=== PATIENT | female | born 1940 | race Caucasian/White ===

== ENCOUNTER 2018-01-15 22:28 | Emergency (ER) | payer MEDICARE, BC, MEDICAID ==
--- NOTE | 2018-01-16 00:53 | EDM.PDOC ---
ED HPI GENERAL MEDICAL PROBLEM - General Chief Complaint: ENT Problem Stated Complaint: SORE THROAT [id number] Time Seen by Provider: 01/16/18 00:05 Source of Information: Reports: Patient History Limitations: Reports: No Limitations - History of Present Illness INITIAL COMMENTS - FREE TEXT/NARRATIVE: ED with c/o sore throat , was in clinic on Thursday started on amoxicillin for sinus infection. Voice now hoarse, Concerned as on medication for arthritis that decreases immune system. - Related Data Allergies Allergy/AdvReac Type Severity Reaction Status Date / Time leflunomide [From Arava] Allergy Cannot Verified 01/15/18 23:05 Remember methotrexate Allergy Cannot Verified 01/15/18 23:05 Remember naproxen sodium [From Aleve] Allergy Nausea and Verified 01/15/18 23:05 Vomiting primidone Allergy Cannot Verified 01/15/18 23:05 Remember Home Meds: Home Meds Acetaminophen [Tylenol Extra Strength] 1 tab PO Q6H 05/15/14 [History] Ascorbic Acid 1 tab PO DAILY 05/15/14 [History] Calcium Carb/Vit D3/Minerals [Calcium 600+D Plus Minerals] 1 tab PO BID [History] Cyanocobalamin (Vitamin B-12) [Vitamin B-12] 1 tab PO DAILY 05/15/14 [History] Etanercept [Enbrel] 50 mg SUBCUT ASDIRECTED 05/15/14 [History] Ferrous Sulfate 1 tab PO DAILY 05/15/14 [History] Methotrexate Sodium [Methotrexate] 6 tab PO .WEEKLY 05/15/14 [History] Multivitamin [Multi Vitamin Daily] 1 tab PO DAILY 05/15/14 [History] Rosuvastatin [Crestor] 2.5 mg PO DAILY 05/15/14 [History] Sennosides/Docusate Sodium [Stool Soft-Stimulant Lax] 1 tab PO DAILY 05/15/14 [ History] clonazePAM [Clonazepam] 0.5 mg PO BID 05/15/14 [History] Folic Acid 1 mg PO DAILY 05/16/14 [History] Glucosamine/D3/Boswellia Melvina [Osteo Bi-Flex Caplet] 1 tab PO BID 05/16/14 [ History] Hydrochlorothiazide/Lisinopril [Lisinopril/HCTZ 20-12.5 MG] 1 tab PO DAILY 09/23 /14 [History] Levothyroxine Sodium 75 mcg PO ACBRK 05/16/14 [History] metFORMIN HCl [Metformin HCl] 500 mg PO BID 05/16/14 [History] Methylcellulose [Citrucel SF] 2 tsp PO DAILY 05/17/14 [History] Past Medical History Cardiovascular History: Reports: High Cholesterol, Hypertension Gastrointestinal History: Reports: Cholelithiasis, Chronic Constipation Musculoskeletal History: Reports: Osteoarthritis, RA Psychiatric History: Reports: Anxiety Endocrine/Metabolic History: Reports: Diabetes, Type II, Hypothyroidism Hematologic History: Reports: Anemia, B12 Deficiency - Infectious Disease History Infectious Disease History: Reports: C-Difficile - Past Surgical History GI Surgical History: Reports: Appendectomy Musculoskeletal Surgical History: Reports: Other (See Below) Other Musculoskeletal Surgeries/Procedures:: several hand and leg surgeries Social & Family History - Tobacco Use Smoking Status *Q: Never Smoker Second Hand Smoke Exposure: No - Caffeine Use Caffeine Use: Reports: None - Recreational Drug Use Recreational Drug Use: No ED ROS ENT - Review of Systems Review Of Systems: See Below Constitutional: Denies: Fever HEENT: Reports: Sinus Problem, Throat Pain Respiratory: Denies: Shortness of Breath, Wheezing, Cough Cardiovascular: Reports: No Symptoms GI/Abdominal: Reports: No Symptoms : Reports: No Symptoms Musculoskeletal: Reports: No Symptoms Skin: Reports: No Symptoms Neurological: Reports: No Symptoms ED EXAM, ENT - Physical Exam Exam: See Below Exam Limited By: No Limitations General Appearance: Alert, No Apparent Distress Eye Exam: Bilateral Eye: EOMI Ears: Normal External Exam, TM Fluid (mild bilateral) Nose: Normal Inspection Mouth/Throat: Normal Inspection Head: Atraumatic, Normocephalic, Sinus Tenderness (mild frontal and maxillary on left) Neck: Normal Inspection. No: Lymphadenopathy (L), Lymphadenopathy (R) Respiratory/Chest: No Respiratory Distress, Lungs Clear, Normal Breath Sounds Cardiovascular: Normal Peripheral Pulses, Regular Rate, Rhythm Back: Normal Inspection Extremities: Other (mild joint deformities of hands consistent with reported arthritis dx. ) Neurological: Normal Cognition Psychiatric: Normal Affect, Normal Mood Skin: Dry, Intact, Normal Color Course - Vital Signs Last Recorded V/S: Last Vital Signs Temp 98.0 F 01/15/18 22:59 Pulse 68 01/15/18 22:59 Resp 20 01/15/18 22:59 BP 183/83 H 05/25/18 22:59 Pulse Ox 97 01/15/18 22:59 Departure - Departure Time of Disposition: 00:51 Disposition: Home, Self-Care 01 Condition: Good Clinical Impression: Congestion of nasal sinus, Hoarseness, Immunocompromised Sinus infection Qualifiers: Sinusitis location: unspecified location Chronicity: unspecified Qualified Code (s): J32.9 - Chronic sinusitis, unspecified - Discharge Information Instructions: Upper Respiratory Infection, Adult, Sinusitis, Adult, Easy-to- Read Referrals: PCP,Unobtain [Primary Care Provider] - Forms: ED Department Discharge Additional Instructions: continue antibiotic humidification follow up if symptoms worsen
== END 2018-01-16 00:57 | disposition home or self-care (01) ==
LOC: DL.ED 22:28
DX: J32.9 Chronic sinusitis, unspecified (principal); R49.0 Dysphonia; D89.9 Disorder involving the immune mechanism, unspecified; E11.9 Type 2 diabetes mellitus without complications; E03.9 Hypothyroidism, unspecified; E78.00 Pure hypercholesterolemia, unspecified; I10 Essential (primary) hypertension; Z88.8 Allergy status to other drugs, medicaments and biological substances; Z88.6 Allergy status to analgesic agent; Z79.899 Other long term (current) drug therapy; Z79.84 Long term (current) use of oral hypoglycemic drugs
CPT/HCPCS: 99282; 99283

== ENCOUNTER 2024-01-01 21:00 | Emergency (ER) | payer OTHER, MEDICAID ==
[2024-01-01 21:51] LABS: BASOPHILS PERCENT AUTO 0.3 % (0.0-1.0); EOSINOPHILS PERCENT AUTO 3.9 % (1.0-3.0); HEMATOCRIT 35.4 % (37.0-47.0); HEMOGLOBIN 11.7 g/dL (12.0-16.0); LYMPHOCYTES PERCENT AUTO 24.8 % (20.5-50.1); MEAN CORPUSCULAR HEMOGLOBIN 32.3 pg (27.0-34.0); MEAN CORPUSCULAR HGB CONC 33.1 g/dL (33.0-35.0); MEAN CORPUSCULAR VOLUME 97.8 fL (80-100); MONOCYTES PERCENT AUTO 7.9 % (2-8); NEUTROPHILS PERCENT AUTO 63.1 % (42.2-75.2); PLATELET COUNT,PLT 224 10^3/uL (150-450); RED BLOOD CELL COUNT 3.62 10^6/uL (4.2-5.4); WHITE BLOOD CELL COUNT,WBC 6.3 10^3/uL (5.0-10.0)
[2024-01-01] MEDS: hydrALAZINE 20 MG/ML SDV IVPUSH ONE (21:53)
[2024-01-01 22:12] LABS: ALBUMIN 3.3 g/dL (3.4-5.0); ANION GAP 12.7 mEq/L (7-13); BILIRUBIN TOTAL 0.2 mg/dL (0.2-1.0); BUN/CREATININE RATIO 21.6 (No establ ref range); CALCIUM 8.8 mg/dL (8.5-10.1); CREATININE 0.88 mg/dL (0.55-1.02); EST CRCL DRUG DOSING (CG) 34.79 mL/min; MAGNESIUM 2.1 mg/dL (1.8-2.4); POTASSIUM,K 3.7 mmol/L (3.5-5.1); PROTEIN TOTAL,TP 7.5 g/dL (6.4-8.2)
[2024-01-01 22:13] LABS: A/G RATIO 0.79
[2024-01-01 22:21] LABS: APPEARANCE,URINE CLEAR (CLEAR); BILIRUBIN,URINE NEGATIVE (NEGATIVE); COLOR,URINE YELLOW (YELLOW); GLUCOSE,URINE NEGATIVE (NEGATIVE); KETONES,URINE NEGATIVE (NEGATIVE); LEUKOCYTE ESTERASE,URINE TRACE (NEGATIVE); NITRITE,URINE NEGATIVE (NEGATIVE); OCCULT BLOOD,URINE NEGATIVE (NEGATIVE); PROTEIN,URINE NEGATIVE (NEGATIVE); UROBILINOGEN,URINE 0.2 mg/dL (0.2-1.0)
[2024-01-01 22:30] LABS: BACTERIA,URINE FEW /HPF (0-FEW/HPF); EPITHELIAL CELLS,URINE OCCASIONAL /HPF (NOT SEEN); MUCUS,URINE RARE /LPF (NOT SEEN); RBC,URINE 0-5 /HPF (0-5); WBC,URINE 0-5 /HPF (0-5/HPF)
[2024-01-01] MEDS: cloNIDine 0.1 MG Tab PO ONE (22:34)
== END 2024-01-01 23:21 | disposition home or self-care (01) ==
LOC: DL.ED 21:00
DX: I16.0 Hypertensive urgency (principal); I10 Essential (primary) hypertension; E78.00 Pure hypercholesterolemia, unspecified; E11.9 Type 2 diabetes mellitus without complications; E03.9 Hypothyroidism, unspecified; Z88.8 Allergy status to other drugs, medicaments and biological substances; Z79.899 Other long term (current) drug therapy; Z79.84 Long term (current) use of oral hypoglycemic drugs; Z90.49 Acquired absence of other specified parts of digestive tract
CPT/HCPCS: 36415; 71045; 80053; 81001; 83735; 84484; 85025; 87086; 93005; 96374; 99284; A9270; J0360; 93010